=== PATIENT | female | born 1955 | race American Indian/Alaskan Native ===

== ENCOUNTER 2019-09-08 14:33 | Emergency (ER) | payer OTHER ==
[2019-09-08 14:40] VITALS: BP 155/84; PULSE 78; TEMP 98; BMI 22.3
--- NOTE | 2019-09-08 17:25 | PDOC ---
History of Present Illness - General Chief Complaint: Injury Stated Complaint: FALL Time Seen by Provider: 09/08/19 16:48 History Source: Patient Exam Limitations: No Limitations - History of Present Illness Initial Comments: 09/08/19 17:22 63 year old female with no significant medical history, surgical history of hysterectomy presents with pain and swelling to right foot after twisting ankle and falling to the ground. Denies head strike, dizziness before or after the fall. Occurred: reports: just prior to arrival Severity: reports: mild Pain Location: reports: lower extremity Method of Injury: Yes: fall Modifying Factors: improves with: immobilization, pain medication Loss of Consciousness: no loss of consciousness Associated Symptoms (Fall): denies symptoms Past History - Travel Traveled outside of the country in the last 30 days: No Close contact w/someone who was outside of country & ill: No - Past Medical History Allergies/Adverse Reactions: Allergies Allergy/AdvReac Type Severity Reaction Status Date / Time No Known Allergies Allergy Verified 09/08/19 14:40 Home Medications: Ambulatory Orders Ibuprofen [Ibu] 600 mg PO TID #20 tablet 09/08/19 COPD: No - Psycho Social/Smoking Cessation Hx Smoking History: Never smoked Have you smoked in the past 12 months: No Hx Alcohol Use: No Drug/Substance Use Hx: No Substance Use Type: None Trauma Specific PMHX - Complaint Specific PMHX Arthritis: No Back Injury: No Neck Injury: No Hx Sacro Iliac Joint Dysfunction: No Review of Systems - Review of Systems Able to Perform ROS?: Yes Is the patient limited Georgian proficient: No Constitutional: No: Chills, Fever HEENTM: No: Nose Congestion, Throat Pain, Throat Swelling, Mouth Swelling Respiratory: No: See HPI, Orthopnea, Shortness of Breath Cardiac (ROS): No: Edema ABD/GI: No: Constipated, Poor Appetite : No: Pain, Urgency Musculoskeletal: Yes: Joint Pain, Joint Swelling. No: Back Pain Integumentary: No: Erythema, Flushing Neurological: No: Numbness, Paresthesia, Tingling, Tremors *Physical Exam - Vital Signs Last Vital Signs Temp Pulse Resp BP Pulse Ox 98 F 78 18 155/84 99 09/08/19 14:37 09/08/19 14:37 09/08/19 14:37 09/08/19 14:37 09/08/19 14:37 - Physical Exam General Appearance: Yes: Nourished, Appropriately Dressed HEENT: positive: TMs Normal, Pharynx Normal Neck: positive: Supple. 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 Denies head strike, dizziness before or after the fall. Imp: right ankle injury plan: xray of right ankle refused analgesia 09/08/19 19:56 negative for fracture or subluxation pooja wrap applied and instructions given to follow up Discharge - Discharge Information Problems reviewed: Yes Clinical Impression/Diagnosis: Ankle sprain Qualifiers: Encounter type: initial encounter Involved ligament of ankle: unspecified ligament Laterality: right Qualified Code(s): S93.401A - Sprain of unspecified ligament of right ankle, initial encounter Condition: Good Disposition: HOME - Admission No - Additional Discharge Information Prescriptions: Ibuprofen [Ibu] 600 mg PO TID #20 tablet - Follow up/Referral Referrals: Taj Dave MD [Primary Care Provider] - (call for follow up appointment ) Jovanni Posey MD [Staff Physician] - Call tomorrow (for follow up ) - Patient Discharge Instructions Patient Printed Discharge Instructions: DI for Ankle Sprain Additional Instructions: Activity as tolerated Apply ice compress to right ankle for 20 minutes 3 to times daily for 3 days elevate foot at rest Remove pooja wraps for activity and showering - Post Discharge Activity Work/Back to School Note: Back to Work
== END 2019-09-08 19:22 | disposition home or self-care (01) ==
LOC: JERFT 14:33
DX: S93.401A Sprain of unspecified ligament of right ankle, initial encounter (principal); W18.39XA Other fall on same level, initial encounter; Y93.89 Activity, other specified; Y92.59 Other trade areas as the place of occurrence of the external cause; Y99.0 Civilian activity done for income or pay
CPT/HCPCS: 73610-TC-RT-FY; 73630-TC-RT-FY; 99281-25